=== PATIENT | male | born 1975 | race Two or more races ===

== ENCOUNTER 2020-06-04 14:07 | Emergency (ER) | payer OTHER ==
[~2020-06-04] VITALS: Ht 172.7 cm; Wt 78.5 kg
[2020-06-04] MEDS ORDERED: PERCOCET 5-3251 EACH PO (15:53)
[2020-06-04] MEDS ORDERED: VOLTAREN-XR100 MG PO (15:53)
== END 2020-06-04 16:13 | disposition home or self-care (01) ==
LOC: ER 14:07
DX: I96 Gangrene, not elsewhere classified (principal)